=== PATIENT | male | born 1940 | race African-American/Black ===

== ENCOUNTER 2022-03-16 22:48 | Emergency (ER) | payer OTHER, MEDICAID ==
[~2022-03-16] VITALS: Ht 177.8 cm; Wt 82.0 kg
[2022-03-17 01:34] LABS: BASOPHILS % 0.7 % (0.0-2.0); EOSINOPHILS % 1.5 % (0.0-5.0); HEMATOCRIT. 33.3 % (42.0-52.0); HEMOGLOBIN. 10.6 g/dL (14.0-18.0); LYMPHOCYTES % 31.6 % (20.0-50.0); MEAN PLATELET VOLUME 8.2 fl (7.4-10.4); MONOCYTES % 9.9 % (2.0-8.0); NEUTROPHILS % 56.3 % (40.0-76.0); PLATELET 323 x1000/uL (130-400); RED BLOOD CELL COUNT 3.66 mill/uL (4.7-6.1); RED CELL DISTRIBUTION WIDTH 15.5 % (11.6-14.6)
[2022-03-17 01:44] LABS: CHLORIDE 106 mEq/L (98-107)
[2022-03-17 02:00] VITALS: BP 102/63
[2022-03-17] MEDS ORDERED: FURO-151 MT (04:57)
== END 2022-03-17 18:21 ==
LOC: ER 23:38 → CANBEDREQ 03-17 08:46 → ER 03-17 18:21
DX: I11.0 Hypertensive heart disease with heart failure (principal); I50.9 Heart failure, unspecified; G40.909 Epilepsy, unspecified, not intractable, without status epilepticus; E78.5 Hyperlipidemia, unspecified
CPT/HCPCS: 36415; 71045; 80053; 83880; 85025; 85379; 93005; 93970; 99285